=== PATIENT | female | born 1940 | race Caucasian/White ===

== ENCOUNTER 2019-01-16 10:42 | Emergency (ER) | payer MEDICARE, MEDICAID ==
--- OUTSIDE RECORDS SUMMARY | 2019-01-16 11:14 | XMS REPORT | Continuity of Care Document ---
:1940 External Reference #:[id number] Author Name Maria Esther Piper PA (transmitted by agent of provider Akanksha Cali) Address [address], [address] [place] [address] Care Team Providers Name Role Phone Paolo Lizarraga MD [facility] - Care Team Information [employer] [phone] Cardiovascular Disease Gadiel Pineda MD - Internal Medicine Care Team Information [employer] Problems Active Problems Provider Date Hyperlipidemia Akanksha Cali MD Onset: 12/12/2017 Social History Type Date Description Comments Sex Unknown Tobacco Use Start: Unknown Never Smoked Cigarettes Smoking Status Reviewed: 08/22/18 Never Smoked Cigarettes ETOH Use Denies alcohol use Allergies, Adverse Reactions, Alerts Active Allergies Reaction Severity Comments Date Cozaar 05/18/2017 Metoprolol Tartrate 05/18/2017 Medications Active Medications SIG Qnty Indications Ordering Provider Date Amlodipine Besylate 1 by mouth 90taPaolo Chairez 12/01/2018 5mg every day Dai Anthony, [facility] Tablets Vitamin D3 Complete 1 tab by mouth 90Akanksha Amaya MD 06/14/2018 every day Tablets Losartan Potassium 1 by mouth Akanksha Gonzalez MD 06/14/2018 100mg every day Tablets Atorvastatin Calcium 1 by mouth 90Akanksha Amaya MD 40mg every day Tablets Clopidogrel Bisulfate 1 by mouth Akanksha Gonzalez MD every day 75mg Tablets Omeprazole 1 by mouth 90Akanksha Jackson MD 20mg Capsules every day DR Torsemide 1 by mouth Unknown 20mg Tablets twice daily Immunizations Description No Information Available Vital Signs Date Vital Result Comment 12/21/2018 8:19am BP Systolic Sitting Left Arm 138 mmHg BP Diastolic Sitting Left Arm 64 mmHg Heart Rate 87 /min Respiratory Rate 20 /min Height 64 inches 5'4" Weight 230.00 lb BMI (Body Mass Index) 39.5 kg/m2 BSA (Body Surface Area) 2.08 m2 [place] body weight in kilograms 54 kg O2 % BldC Oximetry 98 % 08/22/2018 3:05pm BP Systolic Sitting Left Arm 123 mmHg BP Diastolic Sitting Left Arm 70 mmHg Heart Rate 56 /min Respiratory Rate 17 /min Height 64 inches 5'4" Weight 228.00 lb BMI (Body Mass Index) 39.1 kg/m2 BSA (Body Surface Area) 2.07 m2 [place] body weight in kilograms 54 kg O2 % BldC Oximetry 98 % Results Description No Information Available Procedures Description No Information Available Medical Devices Description No Information Available Encounters Type Date Location Provider Dx Diagnosis Office Visit 12/21/2018 Cardiology Office Maria Esther Piper I35.0 Nonrheumatic aortic 8:20a B., PA (valve) stenosis I10 Essential (primary) hypertension I49.3 Ventricular premature depolarization R60.0 Localized edema Office Visit 08/22/2018 2:45p Cardiology Office Akanksha Cali I35.0 Nonrheumatic aortic MD (valve) stenosis I10 Essential (primary) hypertension I49.3 Ventricular premature depolarization R60.0 Localized edema E78.2 Mixed hyperlipidemia E55.9 Vitamin D deficiency, unspecified Assessments Date Code Description Provider 12/21/2018 I35.0 Nonrheumatic aortic (valve) stenosis Maria Esther Piper, PA 12/21/2018 I10 Essential (primary) hypertension Maria Esther Piper, PA 12/21/2018 I49.3 Ventricular premature depolarization Maria Esther Piper, PA 12/21/2018 R60.0 Localized edema Maria Esther Piper, PA 08/22/2018 I35.0 Nonrheumatic aortic (valve) stenosis Akanksha Cali MD 08/22/2018 I10 Essential (primary) hypertension Akanksha Cali MD 08/22/2018 I49.3 Ventricular premature depolarization Akanksha Cali MD 08/22/2018 R60.0 Localized edema Akanksha Cali MD 08/22/2018 E78.2 Mixed hyperlipidemia Akanksha Cali MD 08/22/2018 E55.9 Vitamin D deficiency, unspecified Akanksha Cali MD Plan of Treatment Future Appointment(s):02/28/2019 11:45 am - Akanksha Cali MD at [facility] [place]12/21/2018 - Maria Esther Piper, PAI35.0 Nonrheumatic aortic (valve) stenosisComments:Will reschedule echo. She was asked to monitor her weight closely and call with weight gain >3 lbs in 3 days.I10 Essential (primary) hypertensionComments:She will call when she has transportation to schedule nurse visit for BP check. She will bring her home cuff in that time.I49.3 Ventricular premature depolarizationComments:Will reassess LVF with upcoming echo.R60.0 Localized edemaComments:Elevate legs at rest. She will try to limit her sodium consumption.AllFollow up:3 month. Reschedule previously ordered echo. Functional Status Functional Condition Comment Date Status Independent with all ADL's Active Rolling walker is used to ambulate Active Mental Status Description No Information Available Referrals Description No Information Available
[2019-01-16 11:31] VITALS: BP 161/50
--- NOTE | 2019-01-16 11:44 | UC ---
Knee Pain HPI - HPI Summary HPI Summary: left knee pain x 1 week s/p fall one week ago , pt. lost her balance and fell landed on her left side with injury to left knee/ left shoulder and left hip left shoulder and left hip has improved but left knee still hurting pain is 6 out of 10 , worse with walking and movements, better, with rest no swelling, no redness , + weakness - History of Current Complaint Chief Complaint: UCLowerExtremity Stated Complaint: S/P FALL LEFT LEG/KNEE PAIN Time Seen by Provider: 01/16/19 11:13 Hx Obtained From: Patient Onset/Duration: Sudden Onset, Lasting Weeks - 1, Still Present Severity Initially: Moderate Severity Currently: Moderate Pain Intensity: 8 Character: Aching Aggravating Factor(s): Movement, Weight Bearing, Prolonged Standing, Stairs Alleviating Factor(s): Rest Associated Signs And Symptoms: Positive: Weakness. Negative: Swelling, Redness , Bruising, Fever, Numbness, Tingling Able to Bear Weight: Yes - Allergies/Home Medications Allergies/Adverse Reactions: Allergies Allergy/AdvReac Type Severity Reaction Status Date / Time bisoprolol Allergy Shortness Verified 01/16/19 11:16 of Breath metoprolol Allergy Dizziness Verified 01/16/19 11:16 Home Medications: Home Medications Atorvastatin* [Lipitor 10 MG*] 1 tab QPM 01/16/19 [History Confirmed 01/16/19] Clopidogrel TAB* [Plavix TAB*] 1 tab QPM 01/16/19 [History Confirmed 01/16/19] Losartan TAB* [Cozaar TAB*] 1 tab DAILY 01/16/19 [History Confirmed 01/16/19] Omeprazole 1 tab DAILY 01/16/19 [History Confirmed 01/16/19] Torsemide TAB* [Demadex 20 MG*] 1 tab BID 01/16/19 [History Confirmed 01/16/19] amLODIPine TAB* [Norvasc 5 mg TAB*] 1 tab DAILY 01/16/19 [History Confirmed ] PMH/Surg Hx/FS Hx/Imm Hx Cardiovascular History: Hypertension Neurological History: CVA - Surgical History Surgical History: Yes Surgery Procedure, Year, and Place: 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 [facility]. APPENDIX. [facility] - Family History Known Family History: Positive: Hypertension - Social History Alcohol Use: None Substance Use Type: None Smoking Status (MU): Never Smoked Tobacco Review of Systems All Other Systems Reviewed And Are Negative: Yes Constitutional: Positive: Negative Skin: Positive: Negative Eyes: Positive: Negative ENT: Positive: Negative Respiratory: Positive: Negative Is Patient Immunocompromised?: No Physical Exam Triage Information Reviewed: Yes Appearance: Well-Appearing, No Pain Distress, Ill-Appearing, Obese Vital Signs: Initial Vital Signs Temp 97.7 F 01/16/19 11:20 Pulse 52 01/16/19 11:20 Resp 16 01/16/19 11:20 BP 161/50 01/16/19 11:20 Pulse Ox 98 01/16/19 11:20 Vital Signs Reviewed: Yes Eye Exam: Normal Eyes: Positive: Conjunctiva Clear ENT: Positive: Normal ENT inspection, Hearing grossly normal, Pharynx normal Neck: Positive: Supple, Nontender, No Lymphadenopathy Respiratory: Positive: Chest non-tender, Lungs clear, Normal breath sounds, No respiratory distress Cardiovascular: Positive: RRR, No Murmur, Pulses Normal Musculoskeletal: Positive: Other: - left hip: mild tenderness, good ROM left shoulder : mild diffuse tenderness, good ROM left knee: no swelling, no effusion , + diffuse tendernss, gaurding with Doc , Diagnostics - Radiology No standard instances Radiology Interpretation Completed By: Radiologist Summary of Radiographic Findings: left knee xray report: IMPRESSION: OSTEOPENIA. OSTEOARTHRITIS. PERIPHERAL ARTERIAL DISEASE. NO ACUTE OSSEOUS INJURY. IF SYMPTOMS PERSIST, RECOMMEND REPEAT IMAGING. Knee Pain Course/Dx - Differential Dx/Diagnosis Provider Diagnosis: Contusion of left knee Discharge ED - Sign-Out/Discharge Documenting (check all that apply): Patient Departure All imaging exams completed and their final reports reviewed: Yes - Discharge Plan Condition: Stable Disposition: HOME Patient Education Materials: Knee Pain (ED) Referrals: Gadiel Pineda MD [Primary Care Provider] - 7 Days - Billing Disposition and Condition Condition: STABLE Disposition: Home
== END 2019-01-16 12:38 | disposition home or self-care (01) ==
LOC: UCCORT 10:42
DX: S80.02XA Contusion of left knee, initial encounter (principal); I10 Essential (primary) hypertension; I73.9 Peripheral vascular disease, unspecified; M85.862 Other specified disorders of bone density and structure, left lower leg; M17.12 Unilateral primary osteoarthritis, left knee; Z88.8 Allergy status to other drugs, medicaments and biological substances; Z86.73 Personal history of transient ischemic attack (TIA), and cerebral infarction without residual deficits; Z79.899 Other long term (current) drug therapy; W18.30XA Fall on same level, unspecified, initial encounter; Y92.9 Unspecified place or not applicable
CPT/HCPCS: 99211; G0463